=== PATIENT | female | born 1970 | race Two or more races ===

== ENCOUNTER 2016-12-02 00:55 | Emergency (ER) | payer SELFPAY ==
[~2016-12-02] VITALS: Ht 165.1 cm; Wt 62.6 kg
[~2016-12-02 00:55] MED LIST: BUDE10.2 IH; BUTA1CAP29 PO; CIPR500T PO; CYCL10TA2 PO; GABA-586 PO; GABA600T2 PO; INSU100I17 SQ; INSU100V8 SQ; LIDO700A4 TP; METF750T2 PO; ONDA4TAB10 SL; PENI500T PO; POTA20TA82 PO; PRED20TA PO; PROAIR HFA8.5 GM INH
[2016-12-02 01:06] VITALS: BP 133/81
[2016-12-02] MEDS ORDERED: FLUORESCEIN OPHTH TEST STRIP. OD ONE (02:30)
[2016-12-02] MEDS ORDERED: TETRACAINE 0.5% OPHTH SOLUTION 4ML BOTTLE. OD ONE (02:30)
--- NOTE | 2016-12-02 02:36 | PHYS DOC ---
Past Medical History Past Medical History: Asthma, Diabetes-Type II Additional Past Medical Histor: IBS, Neuropathy; trigeminal neurolgia Past Surgical History: Cholecystectomy, , Other Additional Past Surgical Histo: L shoulder dislocation, EYE SURGERY Alcohol Use: None Drug Use: None Adult General Chief Complaint Chief Complaint: EYE PROBLEMS HPI HPI Patient is a 46 year old female who presents here today with irritation to her right eye. Patient reports she had a history significant for a lens transplant and she is concerned that one of the sutures might be falling out. This lens transplant was done of approximately 3 years ago here in [place] however patient does not currently with the turnaround planner's. Patient has any change in her vision. Patient reports that at baseline she has poor vision out of her right eye. Any other symptomatology. Patient has any fevers shakes chills nausea vomiting diarrhea chest pain or shortness of breath. Patient denies any drainage of her eye. Patient has any trauma to her eye. She is physical exam was significant for a normal funduscopic exam. Patient's pupils are equally round and reactive to light. Extraocular motions are intact. Patient unforeseen stain which was unremarkable for any abrasions. After applying tetracaine patient reports she is completely pain-free from symptoms. The etiology of her symptoms currently are unclear. I have discussed with the patient that she will need to follow-up with ophthalmology within the next 24- 48 hours for reevaluation. Patient reports that she will be able find out who her turnaround planner's and she'll make an appointment tomorrow to see him. Patient's visual acuity was noted was taken by the nurse. This appears to be baseline for the patient. Review of Systems Review of Systems Constitutional: Denies fever or chills [] Eyes: Denies change in visual acuity, All other review systems are negative except as documented in the history of present illness portion. Current Medications Current Medications Current Medications Medications (Trade) Dose Ordered Sig/Anh Start Time Stop Time Status Last Admin Dose Admin Fluorescein Sodium (Ful-Jessica) 1 strip 1X ONCE 12/02/16 02:30 12/02/16 02:31 DC 12/02/16 02:28 1 STRIP Tetracaine HCl (Tetracaine) 4 drop 1X ONCE 12/02/16 02:30 12/02/16 02:31 DC 12/02/16 02:28 4 DROP Allergies Allergies Allergies Coded Allergies Type Severity Reaction Last Updated Verified No Known Drug Allergies 05/04/16 No Physical Exam Physical Exam Constitutional: Well developed, well nourished, no acute distress, non-toxic appearance. [] HENT: Normocephalic, atraumatic, bilateral external ears normal, oropharynx moist, no oral exudates, nose normal. [] Eyes: PERRLA, EOMI, conjunctiva normal, no discharge. [] Neck: Normal range of motion, no tenderness, supple, no stridor. [] Cardiovascular:Heart rate regular rhythm, no murmur [] Lungs & Thorax: Bilateral breath sounds clear to auscultation [] Abdomen: Bowel sounds normal, soft, no tenderness, no masses, no pulsatile masses. [] Skin: Warm, dry, no erythema, no rash. [] Back: No tenderness, no CVA tenderness. [] Extremities: No tenderness, no cyanosis, no clubbing, ROM intact, no edema. [] Neurologic: Alert and oriented X 3, normal motor function, normal sensory function, no focal deficits noted. [] Psychologic: Affect normal, judgement normal, mood normal. [] Current Patient Data Vital Signs Vital Signs Date Time Temp Pulse Resp B/P Pulse Ox O2 Delivery O2 Flow Rate FiO2 12/02/16 01:06 97.4 105 20 100 Room Air 97.4 EKG EKG [] Radiology/Procedures Radiology/Procedures [] Course & Med Decision Making Course & Med Decision Making Pertinent Labs and Imaging studies reviewed. (See chart for details) [] Dragon Disclaimer Dragon Disclaimer This electronic medical record was generated, in whole or in part, using a voice recognition dictation system. Departure Departure Impression: Primary Impression: Conjunctivitis Disposition: 01 HOME, SELF-CARE Condition: STABLE Referrals: Zeus VEE MD (PCP) Patient Instructions: Allergic Conjunctivitis Additional Instructions: Please follow up with her eye doctor in the morning. Return to the ER if there is any new changes or concerns. JA HALE MD Dec 02, 2016 02:36
== END 2016-12-02 03:11 | disposition home or self-care (01) ==
LOC: ER 00:55
DX: H10.9 Unspecified conjunctivitis (principal); J45.909 Unspecified asthma, uncomplicated; K58.9 Irritable bowel syndrome, unspecified; E11.40 Type 2 diabetes mellitus with diabetic neuropathy, unspecified; Z94.89 Other transplanted organ and tissue status
CPT/HCPCS: 99283